=== PATIENT | male | born 1995 | race Caucasian/White ===

== ENCOUNTER 2020-08-07 09:25 | Outpatient (REF) | payer OTHER, SELFPAY | END 2020-08-07 09:26 | disposition home or self-care (01) | LOC: HO.LAB 09:25 | PROVIDERS: Visit Provider Internal Medicine | DX: Z20.828 Contact with and (suspected) exposure to other viral communicable diseases (principal) | CPT/HCPCS: C9803; U0003 ==

== ENCOUNTER 2022-02-03 21:22 | Emergency (ER) | payer OTHER, SELFPAY ==
[2022-02-03 22:23] VITALS: BP 129/74; PULSE 74; RESP 16; TEMP 36.7; O2SAT 99; BMI 26.4
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
[2022-02-04] MEDS: Lidocaine HCl 1 % MPF 5 ML VIAL SUBCUT (00:05)
[2022-02-04] MEDS: Diphth,Pertus(ACell),Tet Adult 0.5 ML SYRINGE IM (00:05)
[2022-02-04] MEDS: Bacitracin Oint 14 GM TUBE 1 APPL TOPICAL (00:08)
== END 2022-02-04 01:11 | disposition home or self-care (01) ==
PROVIDERS: Emergency Provider Student in an Organized Health Care Education/Training Program
DX: S01.81XA Laceration without foreign body of other part of head, initial encounter (principal); S60.512A Abrasion of left hand, initial encounter; S60.511A Abrasion of right hand, initial encounter; V29.40XA Motorcycle driver injured in collision with unspecified motor vehicles in traffic accident, initial encounter; Y93.9 Activity, unspecified; Y92.9 Unspecified place or not applicable; Y99.9 Unspecified external cause status
CPT/HCPCS: 12011; 90471; 90715; 99284

== ENCOUNTER 2023-05-27 12:26 | Outpatient (AMB) | payer OTHER, SELFPAY ==
--- NOTE | 2023-05-27 13:06 | AM.OFFWIN_ITS ---
Intake Vital Signs 05/27/23 13:07 Height 5 ft 10 in Weight 193 lb BMI 27.7 BP 118/76 Blood Pressure Location Rt brachial Position Sitting Pulse 73 Pulse Source Pulse Oximeter Temp 97.8 F Temp Source Temporal Artery Scan Pulse Oximetry (%) 98 Intake Visit Reasons: EST/cold symptoms Intake Note: pt is here for c/o cold symptoms, body chills, congestion, fever Patient Tobacco Use Status: Never used Tobacco Allergies No Known Allergies Allergy (Verified 05/27/23 13:07) Do you need a note to return to daycare/school/sports/work: Yes HPI EST/cold symptoms HPI Details 28-year-old male patient presents today for a sick visit. He reports sore throat and congestion started about 1 week ago, and over the last 2 days he has developed body aches, fever, chills. No longer has a sore throat. Has young children who has of recently had similar symptoms. He has taken some DayQuil with mild relief. Denies any shortness of breath or GI symptoms. COUNT INCLUDES THE [facility] Social History Patient Tobacco Use Status: Never used Tobacco Review of Systems Const All systems reviewed & are unremarkable except as noted in HPI and below Physical Exam Vital Signs: Last Vital Signs Temp 97.8 F 05/27/23 13:07 Pulse 73 05/27/23 13:07 BP 118/76 05/27/23 13:07 Pulse Ox 98 05/27/23 13:07 BMI result Body Mass Index 27.7 Const General: cooperative and ill appearing acutely HEENT Head: Yes normal to inspection Ears: hearing grossly normal bilaterally General nose exam: Normal external nose present and Nasal discharge present mucoid Face and sinus: Yes normal facial exam Mouth: Normal oral and palatal mucosa present and moist mucous membranes Throat: Yes posterior oropharynx abnormal (Mild erythema) Neck Neck: Yes no lymphadenopathy Resp Effort & Inspection: normal respiratory effort and able to speak in complete sentences Auscultation: clear to auscultation bilaterally Cardio Jugular venous distension: no JVD Palpation: normal PMI Rate: regular rate Rhythm: regular rhythm Skin General skin exam: no rashes or lesions noted Extrem General: Yes capillary refill normal and Yes no clubbing, cyanosis or edema Psych Appearance: grossly normal Mental Status: mental status grossly normal Speech and movement: Normal speech and movement present Assessment & Plan Assessment & Plan (1) Upper respiratory infection: Code(s): J06.9 - Acute upper respiratory infection, unspecified Qualifiers: URI type: unspecified viral URI Qualified Code(s): J06.9 - Acute upper respiratory infection, unspecified Plan: Symptoms consistent with a viral respiratory illness. Patient declines viral testing. States he will take a home COVID test. We discussed self-limiting nature of symptoms, and conservative measures to take for these, including OTC cold/flu medication, Tylenol/Motrin, increasing rest and hydration. Work note provided per patient's request. If he does not improve with time and conservative measures, or if symptoms worsen, he can return to the clinic for further evaluation. He verbalizes understanding and agrees to plan. Coding Level of Care Code Est Pt Level 3 (16732) Diagnoses Viral upper respiratory tract infection J06.9 URI type: unspecified viral URI
[2023-05-27 13:07] VITALS: BP 118/76; PULSE 73; TEMP 36.6; O2SAT 98; BMI 27.7
== END 2023-05-27 13:43 | disposition home or self-care (01) ==
PROVIDERS: Visit Provider Nurse Practitioner Family
DX: J06.9 Acute upper respiratory infection, unspecified (principal)
CPT/HCPCS: 99213

== ENCOUNTER 2023-11-11 12:55 | Outpatient (AMB) | payer OTHER, SELFPAY ==
[2023-11-11 13:05] VITALS: BP 110/70; PULSE 76; TEMP 36.7; O2SAT 97; BMI 28.4
--- NOTE | 2023-11-11 13:05 | AM.OFFWIN_ITS ---
Intake Vital Signs 11/11/23 13:05 Height 5 ft 10 in Weight 198 lb BMI 28.4 BP 110/70 Blood Pressure Location Lt brachial Position Sitting Pulse 76 Pulse Source Pulse Oximeter Temp 98.1 F Temp Source Temporal Artery Scan Pulse Oximetry (%) 97 Oxygen Delivery Method Room Air Intake Visit Reasons: Est/stomach pain (lobby masked) Intake Note: pt is here today for stomach started yesterday Patient Tobacco Use Status: Never used Tobacco Allergies No Known Allergies Allergy (Verified 11/11/23 13:08) Do you need a note to return to daycare/school/sports/work: Yes HPI HPI Comments History of Present Illness Details 28 y/o male patient who presents to walk in clinic with c/o Abdominal pain associated with diarrhea. Symptoms started yesterday. Denies Nausea, vomiting, fevers or chills. Reports hydrating well with fluids. His entire family with similar symptoms at home. Denies blood in stool. Denies diet changes. Denies new medications. [facility] Social History Patient Tobacco Use Status: Never used Tobacco Review of Systems Const All systems reviewed & are unremarkable except as noted in HPI and below Physical Exam Vital Signs: Last Vital Signs Temp 98.1 F 11/11/23 13:05 Pulse 76 11/11/23 13:05 BP 110/70 11/11/23 13:05 Pulse Ox 97 11/11/23 13:05 Oxygen Delivery Method Room Air 11/11/23 13:05 BMI result Body Mass Index 28.4 Const General: comfortable and no acute distress Nutritional Appearance: well nourished Orientation/consciousness: patient oriented x3 HEENT Head: Yes normocephalic GI Inspection: No distended Palpation (GI): Soft to palpation, not firm, nontender, no guarding, not rigid, No hepatosplenomegaly present, no hernias and no masses Auscultation: normal bowel sounds Rectal Exam - Male: Yes deferred Neuro General: patient oriented x3 Gait exam (Neuro): Normal gait present Psych Speech and movement: Normal speech and movement present and Clear speech present Affect: normal affect Attitude: cooperative Assessment & Plan Assessment & Plan (1) Gastritis: Code(s): K29.70 - Gastritis, unspecified, without bleeding Qualifiers: Chronicity: acute Gastritis bleeding: without bleeding Gastritis type: unspecified gastritis Qualified Code(s): K29.00 - Acute gastritis without bleeding Plan: - Avoid Spicy and oily foods - BLAND diet - advance solids slowly -Wash hands frequently - Avoid High Fiber foods - Hydrate well (2) Diarrhea: Code(s): R19.7 - Diarrhea, unspecified Qualifiers: Diarrhea type: unspecified type Qualified Code(s): R19.7 - Diarrhea, unspecified Plan: - Avoid Spicy and oily foods - BLAND diet - advance solids slowly -Wash hands frequently - Avoid High Fiber foods - Hydrate well Plan - Avoid Spicy and oily foods - BLAND diet - advance solids slowly -Wash hands frequently - Avoid High Fiber foods - Hydrate well Medications: New metoclopramide HCl (Reglan) 10 mg PO Q6H PRN 30 tabs 0RF nausea and vomiting K29.00 - Acute gastritis without bleeding, R19.7 - Diarrhea, unspecified ondansetron 8 mg PO Q8H 30 tabs 0RF K29.00 - Acute gastritis without bleeding, R19.7 - Diarrhea, unspecified Coding Level of Care Code Est Pt Level 3 (08412) Diagnoses Acute gastritis without hemorrhage, unspecified gastritis type K29.00 Chronicity: acute Gastritis bleeding: without bleeding Gastritis type: unspecified gastritis Diarrhea, unspecified type R19.7 Diarrhea type: unspecified type Time Spent (min) 15
== END 2023-11-11 14:17 | disposition home or self-care (01) ==
PROVIDERS: Visit Provider Nurse Practitioner Family
DX: K29.00 Acute gastritis without bleeding (principal); R19.7 Diarrhea, unspecified
CPT/HCPCS: 99213

== ENCOUNTER 2024-01-25 08:08 | Outpatient (AMB) | payer OTHER, SELFPAY ==
[2024-01-25 08:14] VITALS: BP 112/80; PULSE 87; TEMP 36.9; O2SAT 98; BMI 28.4
--- NOTE | 2024-01-25 08:14 | MHC.OFFWIV ---
Intake Vital Signs 01/25/24 08:14 Height 5 ft 10 in Weight 198 lb BMI 28.4 BP 112/80 Blood Pressure Location Lt brachial Position Sitting Pulse 87 Pulse Source Pulse Oximeter Temp 98.5 F Temp Source Oral Pulse Oximetry (%) 98 Oxygen Delivery Method Room Air Intake Visit Reasons: EP Strep throat? Intake Note: Patient here for sore throat that started yesterday afternoon. denies any fevers. Patient Tobacco Use Status: Never used Tobacco Allergies No Known Allergies Allergy (Verified 01/25/24 08:16) Do you need a note to return to daycare/school/sports/work: No HPI HPI Comments History of Present Illness Details Patient presents to the walk-in stay with complaints of sore throat since yesterday everyone at home sick with same Pain with swallowing Tolerating p.o., denies nausea, vomiting Denies headaches, cough, ear pain, fevers, chest pain, syncope, dizziness, weakness or difficulty managing secretions PFSH Social History Patient Tobacco Use Status: Never used Tobacco Review of Systems Const All systems reviewed & are unremarkable except as noted in HPI and below Physical Exam Vital Signs: Last Vital Signs Temp 98.5 F 01/25/24 08:14 Pulse 87 01/25/24 08:14 BP 112/80 01/25/24 08:14 Pulse Ox 98 01/25/24 08:14 Oxygen Delivery Method Room Air 01/25/24 08:14 BMI result Body Mass Index 28.4 General: awake, alert, oriented. Answers questions appropriately. Fully engaged in examination. Skin: warm, dry, intact HEENT: TMs intact bilaterally, without erythema. Posterior pharynx without erythema or exudate. Sclera without icterus or injection. Cardiac: External chest normal in appearance. Respiratory: LSCTAB. Abdomen: without gross distension. Neurological: Oriented to person, place, time and situation. Thought process intact. Psychiatric: Appropriate mood and affect. Good judgment and insight. Results AMB Rapid Strep AMB Rapid Strep Negative Last Edit by SARA Patricio on 01/25/24 08:26 Results Reviewed Results Reviewed: Laboratory Last Values Strep Scn Rapid Clinic Negative 01/25/24 08:25 Assessment & Plan Assessment & Plan (1) URI (upper respiratory infection): Code(s): J06.9 - Acute upper respiratory infection, unspecified Plan URI, no abx warranted. Rapid strep negative Rest, drink plenty of fluids, tylenol or motrin as needed. Recommend taking OTC nasal decongestants, sore throat likely secondary to post nasal drip. Follow up with pcp or in clinic for any new or worsening symptoms. Go to ER for shortness of breath, chest pain, palpitations, weakness, dizziness. Orders: Orders AMB Rapid Strep Screen Today Z13.9 - Encounter for screening, unspecified Coding Level of Care Code Est Pt Level 3 (21160) Diagnoses URI (upper respiratory infection) J06.9
== END 2024-01-25 09:45 | disposition home or self-care (01) ==
PROVIDERS: Visit Provider Registered Nurse Emergency
DX: J06.9 Acute upper respiratory infection, unspecified (principal)
CPT/HCPCS: 87880; 99213